=== PATIENT | female | born 1940 | race Two or more races ===

== ENCOUNTER 2022-12-08 20:16 | Emergency (ER) | payer OTHER ==
[~2022-12-08] VITALS: Ht 160 cm; Wt 66.2 kg
[2022-12-08] MEDS ORDERED: SYNTHROID75 MCG PO (21:30)
== END 2022-12-09 01:40 | disposition home or self-care (01) ==
LOC: ER 20:16
DX: S40.029A Contusion of unspecified upper arm, initial encounter (principal); X58.XXXA Exposure to other specified factors, initial encounter; Y93.89 Activity, other specified; Y92.89 Other specified places as the place of occurrence of the external cause; Y99.9 Unspecified external cause status; E03.9 Hypothyroidism, unspecified

== ENCOUNTER 2022-12-09 09:57 | Emergency (ER) | payer OTHER ==
[~2022-12-09] VITALS: Ht 160 cm; Wt 65.8 kg
[~2022-12-09 09:57] MED LIST: SYNTHROID75 MCG PO
== END 2022-12-09 15:01 | disposition home or self-care (01) ==
LOC: ER 09:57
DX: R60.0 Localized edema (principal); E03.9 Hypothyroidism, unspecified